=== PATIENT | male | born 1960 | race Caucasian/White ===

== ENCOUNTER 2018-05-03 21:23 | Inpatient (IN) | payer MEDICAID, OTHER ==
[2018-05-03 23:04] LABS: ADD MAN DIFF? NO
[2018-05-03 23:08] LABS: BASOPHILS % 0.4 % (0.0-2.0); HEMATOCRIT 41.6 % (42.0-52.0); HEMOGLOBIN 12.9 g/dl (14.0-18.0); LYMPHOCYTES # 1.5 10^3/ul (0.8-2.9); LYMPHOCYTES % 27.3 % (15.0-51.0); MEAN CORPUSCULAR HEMOGLOBIN 24.5 pg (29.0-33.0); MEAN CORPUSCULAR VOLUME 78.9 fl (82.0-101.0); MEAN PLATELET VOLUME 8.1 fl (7.4-10.4); MONOCYTE # 0.6 10^3/ul (0.3-0.9); MONOCYTES % 9.7 % (0.0-11.0); NEUTROPHIL # 3.5 10^3/ul (1.6-7.5); NEUTROPHILS % 62.4 % (39.0-77.0); PLATELET COUNT 172 10^3/UL (140-415); RED BLOOD COUNT 5.27 10^6/ul (4.70-6.10); RED CELL DISTRIBUTION WIDTH 17.1 % (11.5-14.5)
[2018-05-03 23:08] LABS: WHITE BLOOD COUNT 5.7 10^3/ul (4.8-10.8)
[2018-05-03 23:26] LABS: INR 0.95; PROTIME 12.8 Sec (11.9-14.9)
[2018-05-03] MEDS: morphine 4 MG/ML VIAL IV (23:26)
[2018-05-03] MEDS: SOD CHLORIDE 0.9% 1,000 ML IV (23:26)
[2018-05-03] MEDS: PANTOPRAZOLE 40 MG INJ IV (23:26)
[2018-05-03] MEDS: FAMOTIDINE 20 MG INJ IV (23:26)
[2018-05-03 23:27] LABS: ALANINE AMINOTRANSFERASE 44 IU/L (13-69); ALBUMIN 4.6 g/dl (3.3-4.9); ALBUMIN/GLOBULIN RATIO 1.27; ALKALINE PHOSPHATASE 101 IU/L (42-121); ANION GAP 19 (8-16); ASPARTATE AMINO TRANSFERASE 61 IU/L (15-46); BILIRUBIN,INDIRECT 0.8 mg/dl (0-1.1); BILIRUBIN,TOTAL 0.8 mg/dl (0.2-1.3); BLOOD UREA NITROGEN 12 mg/dl (7-20); CALCIUM 8.3 mg/dl (8.4-10.2); CARBON DIOXIDE 24 mmol/L (21-31); CHLORIDE 104 mmol/L (97-110); CREATININE 0.99 mg/dl (0.61-1.24); GLUCOSE 135 mg/dl (70-220); PARTIAL THROMBOPLASTIN TIME 26.6 Sec (25.0-35.0); POTASSIUM 3.6 mmol/L (3.5-5.1); SODIUM 143 mmol/L (135-144); TOTAL PROTEIN 8.2 g/dl (6.1-8.1)
[2018-05-03 23:40] LABS: TROPONIN-I < 0.010 ng/ml (0.000-0.120)
[2018-05-04] MEDS ORDERED: NACL 0.9% 3 ML SYG IV (01:30)
[2018-05-04] MEDS ORDERED: ALBUTEROL/IPRATROPIUM (NEB) 3 ML AMP HHN (01:30)
[2018-05-04] MEDS ORDERED: ACETAMINOPHEN 325 MG TAB PO (01:30)
[2018-05-04] MEDS: CHLORDIAZEPOXIDE 25 MG CAP PO ×4 (02:00→20:27)
[2018-05-04] MEDS: HYDROCODONE/APAP (5/325) TAB PO ×4 (02:07→20:27)
[2018-05-04] MEDS: ONDANSETRON 4 MG INJ IV (03:32)
[2018-05-04] MEDS: PANTOPRAZOLE 40 MG INJ IV ×2 (05:26→17:27)
[2018-05-04] MEDS: traMADol 50 MG TAB PO (05:26)
[2018-05-04 05:37] LABS: ADD MAN DIFF? NO
[2018-05-04 05:45] LABS: BASOPHILS % 0.3 % (0.0-2.0); HEMATOCRIT 39.2 % (42.0-52.0); LYMPHOCYTES # 1.5 10^3/ul (0.8-2.9); LYMPHOCYTES % 24.6 % (15.0-51.0); MEAN CORPUSCULAR HEMOGLOBIN 24.5 pg (29.0-33.0); MEAN CORPUSCULAR HGB CONC 30.6 g/dl (32.0-37.0); MEAN PLATELET VOLUME 8.5 fl (7.4-10.4); MONOCYTE # 0.5 10^3/ul (0.3-0.9); MONOCYTES % 8.6 % (0.0-11.0); NEUTROPHIL # 3.9 10^3/ul (1.6-7.5); NEUTROPHILS % 66.3 % (39.0-77.0); PLATELET COUNT 158 10^3/UL (140-415)
[2018-05-04 05:45] LABS: WHITE BLOOD COUNT 5.9 10^3/ul (4.8-10.8)
[2018-05-04 06:12] LABS: ALANINE AMINOTRANSFERASE 35 IU/L (13-69); ALBUMIN/GLOBULIN RATIO 1.21; ALKALINE PHOSPHATASE 85 IU/L (42-121); ANION GAP 16 (8-16); ASPARTATE AMINO TRANSFERASE 57 IU/L (15-46); BILIRUBIN,INDIRECT 0.8 mg/dl (0-1.1); BILIRUBIN,TOTAL 0.8 mg/dl (0.2-1.3); BLOOD UREA NITROGEN 12 mg/dl (7-20); CALCIUM 7.9 mg/dl (8.4-10.2); CARBON DIOXIDE 23 mmol/L (21-31); CHLORIDE 105 mmol/L (97-110); CREATININE 0.83 mg/dl (0.61-1.24); GLUCOSE 102 mg/dl (70-220); MAGNESIUM 1.9 mg/dl (1.7-2.5); PHOSPHORUS 3.6 mg/dl (2.5-4.9); POTASSIUM 3.7 mmol/L (3.5-5.1); SODIUM 140 mmol/L (135-144); TOTAL PROTEIN 7.3 g/dl (6.1-8.1)
[2018-05-04 06:49] LABS: IRON 23 ug/dl (35-150)
[2018-05-04 06:59] LABS: % IRON SATURATION 5 % SAT (22-52); TOTAL IRON BINDING CAPACITY 454 ug/dl (241-421)
[2018-05-04 08:33] LABS: FERRITIN 13.8 ng/ml (11.1-264.0)
[2018-05-04] MEDS: MULTIVITAMINS THERAPEUTIC TAB PO (09:19)
[2018-05-04] MEDS: THIAMINE 100 MG TAB PO (09:19)
[2018-05-04] MEDS: FOLIC ACID 1 MG TAB PO (09:19)
[2018-05-04] MEDS: SOD FERRIC GLUC COMPLX 125 MG in SOD CHLORIDE 0.9% 100 ML IVPB (11:24)
[2018-05-04] MEDS: LORAZEPAM 2 MG INJ IV ×2 (11:24→16:08)
[2018-05-04] MEDS: MULTIVITAMINS 10 ML, THIAMINE 100 MG, FOLIC ACID 1 MG in SOD CHLORIDE 0.9% 1,000 ML IVPB (17:21)
[2018-05-05] MEDS: PANTOPRAZOLE 40 MG INJ IV ×2 (05:22→18:24)
[2018-05-05 05:28] LABS: ADD MAN DIFF? NO
[2018-05-05 05:32] LABS: WHITE BLOOD COUNT 5.5 10^3/ul (4.8-10.8)
[2018-05-05 05:32] LABS: HEMATOCRIT 36.6 % (42.0-52.0); MEAN CORPUSCULAR HEMOGLOBIN 24.1 pg (29.0-33.0); MEAN CORPUSCULAR HGB CONC 30.1 g/dl (32.0-37.0); MEAN CORPUSCULAR VOLUME 80.3 fl (82.0-101.0); MEAN PLATELET VOLUME 8.8 fl (7.4-10.4); PLATELET COUNT 113 10^3/UL (140-415); RED BLOOD COUNT 4.56 10^6/ul (4.70-6.10)
[2018-05-05 06:02] LABS: ALANINE AMINOTRANSFERASE 32 IU/L (13-69); ALBUMIN 3.7 g/dl (3.3-4.9); ALKALINE PHOSPHATASE 92 IU/L (42-121); ASPARTATE AMINO TRANSFERASE 51 IU/L (15-46); BILIRUBIN,INDIRECT 1.8 mg/dl (0-1.1); BILIRUBIN,TOTAL 1.8 mg/dl (0.2-1.3); TOTAL PROTEIN 6.8 g/dl (6.1-8.1)
[2018-05-05 06:16] LABS: ANION GAP 9 (8-16); BLOOD UREA NITROGEN 9 mg/dl (7-20); CALCIUM 8.3 mg/dl (8.4-10.2); CARBON DIOXIDE 28 mmol/L (21-31); CHLORIDE 106 mmol/L (97-110); CREATININE 0.86 mg/dl (0.61-1.24); GLUCOSE 90 mg/dl (70-220); MAGNESIUM 2.1 mg/dl (1.7-2.5); PHOSPHORUS 3.2 mg/dl (2.5-4.9); POTASSIUM 3.6 mmol/L (3.5-5.1); SODIUM 139 mmol/L (135-144)
[2018-05-05] MEDS: HYDROCODONE/APAP (5/325) TAB PO ×3 (07:46→22:36)
[2018-05-05] MEDS: FOLIC ACID 1 MG TAB PO (08:50)
[2018-05-05] MEDS: MULTIVITAMINS THERAPEUTIC TAB PO (08:50)
[2018-05-05] MEDS: CHLORDIAZEPOXIDE 25 MG CAP PO ×3 (08:50→20:03)
[2018-05-05] MEDS: THIAMINE 100 MG TAB PO (08:50)
[2018-05-05] MEDS: MULTIVITAMINS 10 ML, THIAMINE 100 MG, FOLIC ACID 1 MG in SOD CHLORIDE 0.9% 1,000 ML IVPB (08:54)
[2018-05-05] MEDS: SOD FERRIC GLUC COMPLX 125 MG in SOD CHLORIDE 0.9% 100 ML IVPB (08:54)
[2018-05-05 11:44] LABS: CHOLESTEROL 148 mg/dl (100-200)
[2018-05-05 11:44] LABS: CHOL/HDL RATIO 1.4 RATIO; HDL CHOLESTEROL 105 mg/dl (28-71); LDL CHOLESTEROL,CALCULATED 32 mg/dl; TRIGLYCERIDES 56 mg/dl (0-149)
[2018-05-05 11:51] LABS: HEMOGLOBIN A1C 5.6 % (0-5.9)
[2018-05-05] MEDS: morphine 2 MG INJ IV (12:29)
[2018-05-06] MEDS: traMADol 50 MG TAB PO (01:10)
[2018-05-06] MEDS: HYDROCODONE/APAP (5/325) TAB PO ×2 (02:40→11:15)
[2018-05-06] MEDS: PANTOPRAZOLE 40 MG INJ IV ×2 (05:18→17:39)
[2018-05-06 06:40] LABS: ADD MAN DIFF? NO
[2018-05-06 06:49] LABS: BASOPHILS % 0.5 % (0.0-2.0); EOSINOPHILS # 0.2 10^3/ul (0.0-0.5); EOSINOPHILS % 3.4 % (0.0-7.0); HEMATOCRIT 37.3 % (42.0-52.0); HEMOGLOBIN 11.1 g/dl (14.0-18.0); LYMPHOCYTES # 1.7 10^3/ul (0.8-2.9); LYMPHOCYTES % 37.3 % (15.0-51.0); MEAN CORPUSCULAR HEMOGLOBIN 24.6 pg (29.0-33.0); MEAN CORPUSCULAR HGB CONC 29.8 g/dl (32.0-37.0); MEAN CORPUSCULAR VOLUME 82.7 fl (82.0-101.0); MEAN PLATELET VOLUME 10.3 fl (7.4-10.4); MONOCYTE # 0.6 10^3/ul (0.3-0.9); MONOCYTES % 12.4 % (0.0-11.0); NEUTROPHILS % 46.2 % (39.0-77.0); NUCLEATED RED BLOOD CELLS% 0.5 /100WBC (0.0-0.0); PLATELET COUNT 132 10^3/UL (140-415); RED BLOOD COUNT 4.51 10^6/ul (4.70-6.10); RED CELL DISTRIBUTION WIDTH 16.9 % (11.5-14.5)
[2018-05-06 06:49] LABS: WHITE BLOOD COUNT 4.4 10^3/ul (4.8-10.8)
[2018-05-06 07:06] LABS: PHOSPHORUS 3.8 mg/dl (2.5-4.9)
[2018-05-06 07:06] LABS: MAGNESIUM 2.2 mg/dl (1.7-2.5)
[2018-05-06 07:10] LABS: ALANINE AMINOTRANSFERASE 33 IU/L (13-69); ALBUMIN 3.9 g/dl (3.3-4.9); ALBUMIN/GLOBULIN RATIO 1.34; ALKALINE PHOSPHATASE 94 IU/L (42-121); ANION GAP 8 (8-16); ASPARTATE AMINO TRANSFERASE 54 IU/L (15-46); BILIRUBIN,INDIRECT 0.9 mg/dl (0-1.1); BILIRUBIN,TOTAL 0.9 mg/dl (0.2-1.3); BLOOD UREA NITROGEN 7 mg/dl (7-20); CALCIUM 8.4 mg/dl (8.4-10.2); CARBON DIOXIDE 27 mmol/L (21-31); CHLORIDE 108 mmol/L (97-110); CREATININE 0.92 mg/dl (0.61-1.24); GLUCOSE 83 mg/dl (70-220); POTASSIUM 3.7 mmol/L (3.5-5.1); SODIUM 139 mmol/L (135-144); TOTAL PROTEIN 6.8 g/dl (6.1-8.1)
[2018-05-06] MEDS: MULTIVITAMINS THERAPEUTIC TAB PO (08:25)
[2018-05-06] MEDS: FOLIC ACID 1 MG TAB PO (08:25)
[2018-05-06] MEDS: CHLORDIAZEPOXIDE 25 MG CAP PO ×2 (08:25→12:33)
[2018-05-06] MEDS: MULTIVITAMINS 10 ML, THIAMINE 100 MG, FOLIC ACID 1 MG in SOD CHLORIDE 0.9% 1,000 ML IVPB (08:25)
[2018-05-06] MEDS: THIAMINE 100 MG TAB PO (08:27)
[2018-05-06] MEDS: ONDANSETRON 4 MG INJ IV ×2 (11:14→19:37)
== END 2018-05-06 19:45 | disposition home or self-care (01) | DRG 378 ==
LOC: MS3 05-04 00:22 → E/R 21:23 → PP2 05-04 01:09
PROC: 0DJ08ZZ Inspection of Upper Intestinal Tract, Via Natural or Artificial Opening Endoscopic (ICD-10-PCS; principal; 2018-05-05 16:00)
DX: K92.1 Melena (principal); F10.239 Alcohol dependence with withdrawal, unspecified; K25.9 Gastric ulcer, unspecified as acute or chronic, without hemorrhage or perforation; F10.229 Alcohol dependence with intoxication, unspecified; D50.9 Iron deficiency anemia, unspecified; R10.13 Epigastric pain; K76.0 Fatty (change of) liver, not elsewhere classified; E83.51 Hypocalcemia; Z79.1 Long term (current) use of non-steroidal anti-inflammatories (NSAID)
CPT/HCPCS: 36415; 74176; 80048; 80053; 80061; 80076; 82728; 83036; 83540; 83735; 84100; 84484; 85025; 85610; 85730; 86850; 86900; 86901; 93005; 96374; 96375; 99285-25